=== PATIENT | female | born 1995 ===

== ENCOUNTER → 2025-05-07 09:00 | Outpatient (BNV) | payer BC, SELFPAY | PROVIDERS: Visit Provider Internal Medicine Cardiovascular Disease | DX: R00.0 Tachycardia, unspecified (principal) | CPT/HCPCS: 93244 ==

== ENCOUNTER → 2025-05-07 15:00 | Outpatient (REF) | payer BC, SELFPAY ==
--- NOTE | 2025-05-07 09:00 | HM_ITS ---
Conclusion: 1. Patient was monitored for total period of 3 days 2. Baseline was normal sinus rhythm with average heart of 98 beats per minute 3. No significant arrhythmias or pauses noted 4. Frequent sinus tachycardia noted with total burden of 37% 5. Patient marked the counter 21 times with variety of symptoms including flutter, chest tightness, shortness of breath correlating with sinus rhythm or sinus tachycardia MTDD
== END ==
LOC: HO.CARD 15:00
PROVIDERS: Visit Provider Family Medicine
DX: R07.89 Other chest pain (principal); R00.2 Palpitations
CPT/HCPCS: 93242